=== PATIENT | female | born 1965 | race Caucasian/White ===

== ENCOUNTER → 2021-12-24 11:28 | Outpatient (CLI) | payer OTHER, MEDICAID, SELFPAY ==
[2021-12-31 09:44] LABS: Creatinine, Random Urine 27.5 mg/dL (Not Estab.)
== END ==
PROVIDERS: Referring Provider Nurse Practitioner Family; Visit Provider Nurse Practitioner Family
DX: I10 Essential (primary) hypertension (principal)
CPT/HCPCS: 82384; 82570; 84585

== ENCOUNTER → 2022-03-03 14:23 | Outpatient (CLI) | payer OTHER, MEDICAID, SELFPAY ==
[2022-03-03 15:41] LABS: BUN Creatinine Ratio 14.9 (6-22); Blood Urea Nitrogen 11 mg/dL (7-17); Calcium 9.3 mg/dL (8.4-10.2); Carbon Dioxide 31 mmol/L (22-32); Chloride 99 mmol/L (98-107); Estimated Glomerular Filt Rate > 60 mL/min (>60); Glucose 105 mg/dL (70-100); HEMOLYSIS < 15 (0-50); Potassium 3.7 mmol/L (3.4-5.1); Sodium 138 mmol/L (137-145)
== END ==
PROVIDERS: Referring Provider Nurse Practitioner Family; Visit Provider Nurse Practitioner Family
DX: I10 Essential (primary) hypertension (principal)
CPT/HCPCS: 36415; 80048

== ENCOUNTER → 2024-07-31 15:02 | Outpatient (CLI) | payer BC, SELFPAY ==
--- NOTE | 2024-07-31 15:03 | DI.NM.S_ITS ---
PROCEDURE: NM EXERCISE TREADMILL NON NUC COMPARISON: None. INDICATIONS: CHEST DISCOMFORT FINDINGS: Patient exercised per the standard Be protocol. Total exercise time was 7 minutes and 45 seconds. Test was terminated secondary to fatigue. Maximum heart rate attained is 138 bpm which is 86% of max predicted heart rate. Maximum blood pressure was 182/90[place] [address]. JAXSON -14%. 7.8 METS. No ischemic changes noted. No arrhythmias present. Normal heart rate and blood pressure response to exercise. No chest pains voiced. IMPRESSION: 1. Negative exercise treadmill stress test for ischemia. 2. Above average exercise tolerance. Dictated by: Hira Sinclair M.D. on 07/31/2024 at 16:43 Approved by: Hira Sinclair M.D. on 07/31/2024 at 16:44
== END ==
PROVIDERS: Referring Provider Internal Medicine Cardiovascular Disease; Visit Provider Internal Medicine Cardiovascular Disease
DX: R07.89 Other chest pain (principal)
CPT/HCPCS: 93017

== ENCOUNTER → 2024-09-13 11:35 | Outpatient (CLI) | payer BC, SELFPAY ==
[2024-09-13 12:52] LABS: Blood Urea Nitrogen 8 mg/dL (7-17); Calcium 9.6 mg/dL (8.4-10.2); Carbon Dioxide 28 mmol/L (22-32); Chloride 102 mmol/L (98-107); Estimated Glomerular Filt Rate > 60 mL/min (>60); Glucose 106 mg/dL (70-99); HEMOLYSIS < 15 (0-50); Potassium 4.4 mmol/L (3.4-5.1); Sodium 139 mmol/L (137-145)
== END ==
PROVIDERS: Referring Provider Internal Medicine Cardiovascular Disease; Visit Provider Internal Medicine Cardiovascular Disease
DX: I10 Essential (primary) hypertension (principal)
CPT/HCPCS: 36415; 80048

== ENCOUNTER → 2024-11-25 11:03 | Outpatient (CLI) | payer BC, SELFPAY ==
--- NOTE | 2024-11-25 11:05 | DI.RAD.S_ITS ---
PROCEDURE: XR CHEST 2V INDICATIONS: worseing asthma, lung pain TECHNIQUE: 2 views of the chest were acquired. COMPARISON: None. FINDINGS: Heart, mediastinum and pulmonary vascular: Heart is normal in size and configuration. Mediastinum is unremarkable. Pulmonary vascular is normal. Lungs: Clear Pleural spaces: Normal-no effusions or pneumothorax. IMPRESSION: Normal chest. Dictated by: Khris Chawla M.D. on 11/26/2024 at 7:03 Approved by: Khris Chawla M.D. on 11/26/2024 at 7:04
== END ==
PROVIDERS: PCP Family Medicine; Referring Provider Family Medicine; Visit Provider Family Medicine
DX: J45.30 Mild persistent asthma, uncomplicated (principal)
CPT/HCPCS: 71046

== ENCOUNTER → 2024-12-16 12:31 | Outpatient (CLI) | payer BC, SELFPAY ==
--- NOTE | 2024-12-16 12:32 | DI.RAD.S_ITS ---
PROCEDURE: XR T AND L SPINE 4 TO 5 VIEWS INDICATIONS: neck , chest, back pain TECHNIQUE: 2 views acquired of the thoracolumbar spine. COMPARISON: None. FINDINGS: Bones: No acute fractures or dislocations. Chronic anterior wedge compression deformity of T12 which results in 30% vertebral body height loss. Visualized inferior ribs appear intact. No suspicious bony lesions. No scoliotic curvature. No significant coronal or sagittal imbalance. Mild spondylosis in the mid inferior lumbar spine. Soft tissues: No suspicious soft tissue calcifications. Radiodense pill in the right lower quadrant. Vascular calcifications. IMPRESSION: Chronic anterior wedge compression deformity of T12 which results in 30% anterior vertebral body height loss. Mild spondylosis in the mid to inferior lumbar spine. Radiodense oval-shaped pill in the right lower quadrant, likely secondary to ingested medication Dictated by: Dane Schuler M.D. on 12/16/2024 at 16:42 Approved by: Dane Schuler M.D. on 12/16/2024 at 16:44
== END ==
PROVIDERS: PCP Family Medicine; Referring Provider Family Medicine; Visit Provider Family Medicine
DX: M43.8X4 Other specified deforming dorsopathies, thoracic region (principal); M47.816 Spondylosis without myelopathy or radiculopathy, lumbar region; M54.2 Cervicalgia; M54.9 Dorsalgia, unspecified; G89.29 Other chronic pain
CPT/HCPCS: 72083

== ENCOUNTER → 2024-12-17 14:46 | Outpatient (CLI) | payer BC, SELFPAY ==
--- NOTE | 2024-12-17 14:47 | DI.RAD.S_ITS ---
PROCEDURE: XR CERVICAL SPINE 2V OR 3V INDICATIONS: chronic neck pain TECHNIQUE: Three views s) of the cervical spine were acquired. COMPARISON: None. FINDINGS: Cervical spine curvature and alignment: Straightening lordotic curve suggesting muscle spasm Bones: There are no osseous abnormalities. Disc spaces: Moderate C3-4, moderate C4-5, mild C5-6 and moderate C6-7 degenerative disc disease. There is moderate C2-3 through C5-6 degenerative facet disease . Soft tissues: No soft tissue swelling, calcification or mass. IMPRESSION: Degeneration Dictated by: Khris Chawla M.D. on 12/18/2024 at 13:30 Approved by: Khris Chawla M.D. on 12/18/2024 at 13:31
== END ==
PROVIDERS: PCP Family Medicine; Referring Provider Family Medicine; Visit Provider Family Medicine
DX: M50.31 Other cervical disc degeneration, high cervical region (principal); M47.812 Spondylosis without myelopathy or radiculopathy, cervical region
CPT/HCPCS: 72040

== ENCOUNTER → 2024-12-23 09:36 | Outpatient (CLI) | payer BC, SELFPAY | PROVIDERS: PCP Family Medicine; Referring Provider Family Medicine; Visit Provider Family Medicine | DX: J45.30 Mild persistent asthma, uncomplicated (principal); M54.2 Cervicalgia; R94.2 Abnormal results of pulmonary function studies | CPT/HCPCS: 94060; 94726; 94729 ==

== ENCOUNTER → 2024-12-29 09:40 | Outpatient (CLI) | payer BC, SELFPAY ==
--- NOTE | 2024-12-29 09:41 | DI.MRI.S_ITS ---
PROCEDURE: MR THORACIC SPINE WO CON INDICATIONS: unresolved chronic pain TECHNIQUE: Noncontrast sagittal T1 spine echo and T2 fast spin echo, sagittal STIR, and T2 fast spin echo through the thoracic spine. COMPARISON: None. FINDINGS: Image quality: Excellent. Alignment and Curvature: There is normal bony alignment. Bone Marrow: Marrow is of normal overall signal. No acute vertebral body compression fractures. Incidental T5 hemangioma. Spinal Cord: Visualized spinal cord is normal in size and signal. Paraspinous Soft Tissues: No paravertebral masses. Miscellaneous: On axial images, central canal and foramina appear widely patent at all scanned levels. There is a small central posterior disc protrusion without nerve root impingement at T8-T9. There is a small right paracentral disc protrusion at T9- T10 that nerve root impingement. There is a small left paracentral disc protrusion at T10-T11 without nerve root impingement. IMPRESSION: 1. No canal stenosis or foraminal stenosis. 2. Small disc protrusions without nerve root impingement at T8-T9, T9-T10, and T10-T11. Dictated by: William Sanchez M.D. on 12/30/2024 at 8:08 Approved by: William Sanchez M.D. on 12/30/2024 at 8:11
== END ==
LOC: MRI 09:40
PROVIDERS: PCP Family Medicine; Referring Provider Family Medicine; Visit Provider Family Medicine
DX: S22.080A Wedge compression fracture of T11-T12 vertebra, initial encounter for closed fracture (principal); M51.24 Other intervertebral disc displacement, thoracic region; M54.9 Dorsalgia, unspecified; G89.29 Other chronic pain
CPT/HCPCS: 72146